=== PATIENT | male | born 1965 | race Caucasian/White ===

== ENCOUNTER → 2020-04-20 | Day surgery (SDC) | payer BC ==
[~2020-04-20] VITALS: Ht 188 cm; Wt 98.0 kg
[~2020-04-20] MED LIST: ADACEL VIAL IM ONE; ANCEF IM STA; ANCEF ONE; CARDENE IV ONE; LACTATED RINGERS 1,000 ML ONE; VERSED IV STA; VERSED ONE; WATER 20 ML ONE
[2020-04-20 19:08] VITALS: BP 157/98
[2020-04-20 19:18] VITALS: BP 157/98
--- NOTE | 2020-04-20 19:42 | ER.PDOC ---
General Chief Complaint: Extremities Stated Complaint: FINGER LAC Time seen by MD: 19:40 Source: patient Exam Limitations: no limitations History of Present Illness Initial Comments Injury of left middle finger after wood fell on it. Occurred: just prior to arrival Where: home Severity: severe Context: crush Location of Injury: (L) hand Modifying Factors: pain on movement Allergies: Coded Allergies: peanut (Unverified Adverse Reaction, Unknown, DOES NOT KNOW REACTION, 05/20/17) PT STD THAT HE HAD A BLOOD TEST DONE IN [place] AND WAS TOLD HE IS "BARELY ALLERGIC TO PEANUTS" AND THAT HE DOESNT KNOW HIS REACTION TO PEANUTS. Past Medical History Medical History: hypertension Surgical History: other Social History Alcohol Use: occassionally Drug Use: none Review of Systems Constitutional: no symptoms reported EENTM: no symptoms reported Respiratory: no symptoms reported Cardiovascular: no symptoms reported Gastrointestinal: no symptoms reported Genitourinary: no symptoms reported Musculoskeletal: see HPI All Other Systems: Reviewed and Negative Physical Exam General Appearance: Alert, No Apparent Distress Hand: see diagram, tenderness, nail injury complete Wrist: nml inspection, non-tender, nml ROM 1 - Partial amputation distal left middle finger. Vascular: no vascular compromise Tendons: tendon function nml Forearm/Elbow/Arm: uninjured above wrist Head/ENT: nml inspection, pharynx nml Neck/Back: nml inspection, non-tender Resp/CVS: no resp distress, lungs clear, heart sounds nml, reg. rate & rhythm Abdomen: non-tender, no organomegaly Results/Orders Results/Orders Orders - LALY SALAS MD Xr Finger Lt (04/20/20 19:20) Cefazolin Sodium (Ancef) (04/20/20 19:20) Diph,Pertuss(Acell),Tet Vac/Pf (Adacel V (04/20/20 19:30) Nicardipine Hcl (Cardene) (04/20/20 19:19) Cefazolin Sodium (Ancef) (04/20/20 19:20) Water For Injection,Sterile (Water) (04/20/20 19:22) Vital Signs Date Time Temp Pulse Resp B/P (MAP) Pulse Ox O2 Delivery O2 Flow Rate FiO2 04/20/20 19:18 98.2 91 16 157/98 (117) 98 04/20/20 19:08 98.2 91 16 98 04/20/20 19:08 98.2 91 16 04/20/20 19:08 98.2 91 16 157/98 (117) 98 Administered Medications Medications (Trade) Dose Ordered Sig/Sheba Route PRN Reason Start Time Stop Time Status Last Admin Dose Admin Cefazolin Sodium (Ancef) 1 gm STAT STAT IM 04/20/20 19:20 04/20/20 19:22 DC 04/20/20 19:29 1 GM Diphtheria/ Tetanus/Acell Pertussis (Adacel Vial) 0.5 ml ONCE ONCE IM 04/20/20 19:30 04/20/20 19:31 DC 04/20/20 19:29 0.5 ML Progress Progress X rays left middle finger:Amputation through the distal phalanx of the left 3rd finger with at least 3 osseous fragments within the remaining soft tissues. ER DEPART Departure Time of Disposition: 20:07 Disposition: 30 STILL A PATIENT Impression: Primary Impression: Injury, finger Additional Impression: Amputation finger Condition: Stable Referrals: [facility] (PCP) PRIMARY CARE PROVIDER Comments Patient taken to the OR for revision of partial amputation by Dr. Colon. Duration or Time Spent with Pa: 20 min Problem Qualifiers Primary Impression: Injury, finger Encounter type: initial encounter Laterality: left Qualified Codes: S69.92XA - Unspecified injury of left wrist, hand and finger(s), initial encounter Additional Impression: Amputation finger Encounter type: initial encounter Qualified Codes: S68.119A - Complete traumatic metacarpophalangeal amputation of unspecified finger, initial encounter LALY SALAS MD Apr 20, 2020 19:42
--- NOTE | 2020-04-20 19:46 | DIREP ---
PROCEDURE:XRAY FINGER-LT COMPARISON:None. INDICATIONS:Pain/injury FINDINGS: Three views of the left 3rd digit, middle finger. There is been amputation through the distal phalanx of the left 3rd finger. The distal tuft is absent. There are at least 3 osseous fragments within the remaining soft tissues measuring up to 4 mm. No additional fracture or dislocation identified. There is a punctate radiopaque foreign body in the lateral soft tissues of the more proximal left finger at the level of the mid shaft of the proximal phalanx. Degenerative changes involving the metacarpophalangeal joints. CONCLUSION: 1. Amputation through the distal phalanx of the left 3rd finger with at least 3 osseous fragments within the remaining soft tissues. Dictated by: Norma Lees MD on 04/20/2020 at 07:43 PM
--- NOTE | 2020-04-20 20:18 | NUR ---
DR. CARTER IN ROOM WITH PATIENT TO EXAMINE FINGER TIP. DISCUSSED SURGICAL PROCEDURE WITH PATIENT, PATIENT AGREEABLE TO PROCEDURE. EXPECTATION IS TO BE DISCHARGED SHORTLY AFTER PROCEDURE. CONSENTS DISCUSSED AND SIGNED BY PATIENT, PHYSICIAN AND WITNESS. PATIENT DENIES ANY QUESTIONS OR CONCERNS AT THIS TIME.
--- NOTE | 2020-04-20 20:37 | NUR ---
OR OR, RN AT BEDSIDE TO TAKE PATIENT TO SURGERY. REPORT GIVEN TO DANIKA, RN
[2020-04-20 20:38] VITALS: BP 163/82
--- NOTE | 2020-04-20 21:02 | CNH ---
DATE OF CONSULTATION: 04/20/2020 CHIEF COMPLAINT: Painful left long finger. HISTORY OF PRESENT ILLNESS: The patient is a 55-year-old male who was at work this evening and got his tip of his left long finger amputated in a traumatic fashion when he got caught in a tailgate of a pickup is my understanding. The patient presented to the Emergency Room where the patient was evaluated by Dr. Pickard and I was consulted for further evaluation and treatment. PHYSICAL EXAMINATION: Shows that he has a traumatic amputation of the distal end of his left long finger. His nail was completely avulsed. He has about 30% of the nail bed remaining. There is volar soft tissue loss, but still a fair amount of soft tissue on the volar aspect of his finger. The tip of the distal phalanx is protruding through the end of the wound about 2 mm. IMAGING STUDIES: The patient's x-rays show that he has a fracture of the distal phalanx. ASSESSMENT: Traumatic amputation of the distal end of the left long finger. PLAN: The patient will be taken to the operating room for revision of amputation. The risks and hazards have been discussed with the patient. He understands the risk involved and wants to proceed as planned. Fernando Colon MD DR: JOSE/kiersten JOB# [id number]
[2020-04-20 21:15] VITALS: BP 150/97
--- NOTE | 2020-04-20 21:37 | OPH ---
DATE OF SURGERY: 04/20/2020 PREOPERATIVE DIAGNOSIS: Amputation of the distal aspect of the left long finger. POSTOPERATIVE DIAGNOSIS: Amputation of the distal aspect of the left long finger. OPERATIVE PROCEDURE: Revision of amputation, left long finger. SURGEON: Fernando Colon MD ANESTHESIA: Local. BLOOD LOSS: 5 mL. 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 He was seen in the Emergency Room and found to have an amputation through the distal phalanx. His nail had been avulsed, he had some volar soft tissue loss in palm and the tip of the distal phalanx was comminuted and extending at the end of the wound about 2 mm. The patient was taken to the operating room for revision of amputation. DESCRIPTION OF PROCEDURE: The patient was placed on the operating table in the supine position. A digital block was given about the metacarpal head with 1% lidocaine plain. The patient had the wounds sterilely prepped and draped. A quarter inch [place] drain was placed about the base of the finger to act as a tourniquet. The patient had skin and subcutaneous tissue as well as bone debrided from the wound. We were able to repair the proximal third of his nail bed to the surrounding soft tissue. We were able to pull some of the volar soft tissue over the tip of the distal phalanx after about 2-3 mm was rongeured off. The patient then had the wound irrigated and dressed with Adaptic, 4 x 4s, and Sajan wrap. The patient had the tourniquet released. He was sent to recovery in stable condition. Fernando Colon MD DR: JOSE/kiersten JOB# [id number]
[2020-04-20 21:40] VITALS: BP 149/98
== END | disposition home or self-care (01) ==
LOC: ER 18:55 → SDC 20:12
PROVIDERS: ATTEND Orthopaedic Surgery
DX: S68.113A Complete traumatic metacarpophalangeal amputation of left middle finger, initial encounter (principal); S69.92XA Unspecified injury of left wrist, hand and finger(s), initial encounter; I10 Essential (primary) hypertension; Z72.89 Other problems related to lifestyle; W19.XXXA Unspecified fall, initial encounter
CPT/HCPCS: 26951; 73140; 99285; A4649; J0690; J2250; J7120; A4216

== ENCOUNTER → 2020-09-11 | Outpatient (CLI) | payer BC, OTHER ==
--- NOTE | 2020-09-11 11:17 | DIREP ---
PROCEDURE:CTA ABDOMEN WITH CONTRAST COMPARISON:CT, CT ABD/PELVIS W/ CONTRAST, 03/15/2019, 04:56 PM. INDICATIONS:PERSISTANT HTN, R/O RENAL ARTERY STENOSIS TECHNIQUE:After obtaining the patient's consent, CTA images of the abdomen and pelvis were created with non-ionic intravenous contrast, and with multi-planar/3-D imaging to optimize visualization of vascular anatomy. FINDINGS: AORTA/VASCULAR:No significant atherosclerotic changes. No stenosis, aneurysm or dissection. LOWER CHEST:No infiltrate or pleural effusion. LIVER:Normal. BILIARY:No gallstones or biliary duct dilatation. PANCREAS:Normal. SPLEEN:Normal. URINARY TRACT:Normal nephrograms without obstruction or perinephric inflammation. ADRENALS:Normal. RETROPERITONEUM:Normal. BOWEL/MESENTERY:No bowel obstruction, inflammatory stranding, free fluid or air. Normal visualized appendix. ABDOMINAL WALL:Normal. BONES:Advanced L4/5 disc degenerative changes. OTHER:Normal. CONCLUSION:Negative CT abdomen. No acute process or evidence of renal artery stenosis. Dictated by: Noemy King MD on 09/11/2020 at 11:08 AM
--- NOTE | 2020-09-11 12:59 | DIREP ---
PROCEDURE:MR KNEE WITHOUT CONTRAST [Left] TECHNIQUE:Multi-planar MR images of the left knee were obtained without contrast. COMPARISON:None. INDICATIONS:M25.562 PAIN IN LEFT KNEE FINDINGS: MENISCI:Posterior horn and body undersurface/tibial surface meniscal tear and fraying. Lateral meniscus demonstrates normal signal and morphology. CRUCIATE LIGAMENTS:Anterior and posterior cruciate ligaments demonstrate normal signal and morphology. COLLATERAL LIGAMENTS:Edema overlies the superficial fibers of the MCL may reflect mild sprain versus reactive changes. Lateral collateral ligamentous complex demonstrates normal signal and morphology. HYALINE CARTILAGE:Scattered full-thickness chondral fissuring seen throughout the medial joint compartment. Lateral joint compartment articular cartilage maintained. PATELLOFEMORAL:Full-thickness chondral fissuring noted throughout the medial patellar facet and median ridge. BONES:Minimal foci of subchondral edema in the medial femoral condyle. Marrow signal is age appropriate. No fracture or suspicious lesion. OTHER:Small joint effusion. Synovitis. Prepatellar edema. Small Rodriguez's cyst. CONCLUSION: 1. Posterior horn and medial meniscal body tear with degenerative fraying. 2. Reactive edema versus grade 1 MCL sprain. 3. Medial compartment chondral loss and degenerative changes. 4. Patellar chondral loss. 5. Small joint effusion. Synovitis. Small Rodriguez's cyst. Dictated by: Chicho Jordan M.D. on 09/11/2020 at 12:51 PM
== END | disposition home or self-care (01) ==
LOC: RAD 09:40
PROVIDERS: ATTEND Nurse Practitioner Family
DX: S83.242A Other tear of medial meniscus, current injury, left knee, initial encounter (principal); M17.12 Unilateral primary osteoarthritis, left knee; M25.562 Pain in left knee; M25.462 Effusion, left knee; M71.22 Synovial cyst of popliteal space [Baker], left knee; M65.9 Synovitis and tenosynovitis, unspecified; X58.XXXA Exposure to other specified factors, initial encounter; Y93.89 Activity, other specified; Y92.89 Other specified places as the place of occurrence of the external cause; Y99.8 Other external cause status
CPT/HCPCS: 73721; 74175; Q9965

== ENCOUNTER → 2020-09-13 | Outpatient (CLI) | payer BC | END | disposition home or self-care (01) | LOC: NPLAB 09:49 | PROVIDERS: ATTEND Nurse Practitioner Family | DX: R19.7 Diarrhea, unspecified (principal); Z20.822 Contact with and (suspected) exposure to COVID-19 | CPT/HCPCS: 87426; 87635 ==

== ENCOUNTER 2020-10-13 06:00 | Day surgery (SDC) | payer BC ==
[2020-10-09 15:40] VITALS: BP 139/96
--- NOTE | 2020-10-09 15:58 | PCM.EKG ---
[facility] Test Date: 2020-10-09 Test Time: 16:50:31 Pat Name: NABIL GRAJEDA Department: Patient ID: [facility]-[id number] Room: Gender: M Stable Helper: ROMA : 1965 Requested By: ARABELLA ANTHONY Order Number: [id number] Reading MD: Arabella Anthony Measurements Intervals [place] Rate: 92 P: 63 RI: 172 QRS: 32 QRSD: 82 T: 21 QT: 362 QTc: 447 Interpretive Statements Normal sinus rhythm No previous ECG available for comparison Electronically Signed On 10-12-2020 11:09:43 G[employer] LINE REPAIRER by Arabella Anthony Please click the below link to view image of tracing.
--- NOTE | 2020-10-09 17:01 | DIREP ---
PROCEDURE:CHEST 2 VIEWS COMPARISON:None. INDICATIONS:PRE-OP HEART CATH, ABNORMAL STRESS TEST FINDINGS: LUNGS/PLEURA:No significant pulmonary parenchymal abnormalities. No effusions. VASCULATURE:Normal. Unremarkable pulmonary vasculature. CARDIAC:Normal. No cardiac silhouette abnormality or cardiomegaly. MEDIASTINUM:Normal. No visible mass or adenopathy. BONES:Normal. No fracture or visible bony lesion. OTHER:Negative. CONCLUSION: 1. No acute cardiopulmonary abnormality. Dictated by: Rios Neri Jr. on 10/09/2020 at 04:59 PM
[2020-10-13] VITALS (9 sets, daily range): BP systolic 130–150; BP diastolic 88–100
[~2020-10-13] VITALS: Ht 188 cm; Wt 98.0 kg
[~2020-10-13 06:00] MED LIST changes: -ADACEL VIAL IM ONE; -ANCEF IM STA; -ANCEF ONE; -CARDENE IV ONE; +CARV25TA PO; +CLON1TAB11 PO; +HEPARIN ONE; +HYDR-3194 PO; -LACTATED RINGERS 1,000 ML ONE; +NS 1000ML 1,000 ML IV SCH; +NS 1000ML 1,000 ML ONE; +OLME1TAB23 PO; +OMEP20TA9 PO; +PHENERGAN PO ONE; +POTA10CA PO; +ROSU20TA2 PO; +SUBLIMAZE ONE; +VALIUM PO ONE; -VERSED IV STA; -WATER 20 ML ONE; +XYLOCAINE ONE
[2020-10-13] MEDS ORDERED: PHENERGAN ONE (06:20)
[2020-10-13] MEDS ORDERED: VALIUM ONE (06:21)
[2020-10-13] MEDS ORDERED: NS 1000ML 1,000 ML ONE (06:38)
[2020-10-13] MEDS ORDERED: SUBLIMAZE ONE (06:38)
[2020-10-13] MEDS ORDERED: XYLOCAINE ONE (06:38)
[2020-10-13] MEDS ORDERED: HEPARIN ONE (06:38)
[2020-10-13] MEDS ORDERED: VERSED ONE (06:38)
[2020-10-13] MEDS ORDERED: TYLENOL PO ONE ×2 (08:55→09:00)
--- NOTE | 2020-10-13 08:55 | OPH ---
DATE OF SURGERY: 10/13/2020 HEART CATH REPORT PRECARE DIAGNOSES: Hypertension, hypertensive heart disease, LV systolic dysfunction, 40% ejection fraction, uncontrolled hypertension, dyslipidemia, history of dyspnea, abnormal myocardial perfusion scan, inferoposterior hypoperfusion abnormality with ejection fraction of 40-42%, assess for significant coronary artery disease, multiple risk factors for CAD. POSTCARE DIAGNOSES: Fair sized left main, fully patent. Left anterior descending artery is a type 3 vessel with slow flow of dye, no flow obstruction is documented. It is a fairly large vessel. Circumflex is a good size vessel with proximal mild luminal irregularity with the first obtuse marginal branch showing mild luminal irregularity at the point of origin. No flow obstruction is documented. Right coronary artery is a good size vessel, appears to be fully patent. Left ventricle mildly dilated with mild global hypokinesis and 45% ejection fraction, LVEDP of 15 mm. ANESTHESIA: 2% lidocaine. PREOPERATIVE MEDICATIONS: Phenergan 50 mg p.o., Valium 2.5 mg p.o., Versed 2 mg IV, fentanyl 25 mcg IV. ANTICOAGULATION: Heparin 2000 units intra-arterially, 2000 units in the flush solution, 1000 units in the dye solution. Dye use is Omnipaque. Total amount is 80 mL. CATHETERS: JL4 6-Serbian, JR4 6-Serbian, 6-Serbian angled pigtail catheter. ARTERIAL TIME: 8 minutes. FLUOROSCOPIC TIME: 2.3 minutes. PROCEDURES: Left heart catheterization, bilateral selective coronary arteriography, left ventriculography via right femoral Lorraine approach. PROCEDURE IN DETAIL: Under local anesthesia, right femoral artery was punctured percutaneously by arterial needle, guide wire passed in right femoral artery, 6-Serbian Cordis sheath introduced, side port of the sheath used for femoral arterial pressure monitoring. Sheath anchored with suture. Left Lorraine catheter introduced over guide wire into ascending aorta left coronary artery cannulated and left coronary angiography performed in [place] and [place]ERA projections with craniocaudal applications to visualize all branches. Left catheter exchanged for right coronary catheter and right coronary angiography performed in [place] and OSEGUERA. This catheter exchanged for 6-Serbian pigtail catheter and catheter crossed the aortic valve and left ventricular LVEDP measured and LV gram performed in 30 degrees OSEGUERA view with 30 mL Omnipaque dye and panning of descending aorta attempted. Patient tolerated procedure well. No complications of procedure. Angio-Seal deployed for hemostasis. LVEDP is 15 mm, LV pressure 140/15, femoral artery pressure 120/90, probably damped pressure. Mean pressure is about 95. No gradient across the aorta on pullback of the central catheter. FINAL CONCLUSION: No flow obstructive coronary artery disease, type 3 LAD slow flow of dye in the LAD, mild luminal irregularity proximal circumflex, good size circumflex, normal right coronary artery, mild LV systolic dysfunction, hypertension, hypertensive heart disease and dyslipidemia. PLAN: At this time, risk factor modification, daily exercise. Hemoglobin is over 17, cut down red meat. Aspirin 81 mg once a day. Followup with Beth Burris. Laxmichand MD Gabrielle DR: ASMITA/kiersten JOB# [id number]
[2020-10-13] MEDS ORDERED: ASPI-667 PO (09:00)
[2020-10-13] MEDS ORDERED: COREG PO ONE (11:00)
== END 2020-10-13 11:23 | disposition home or self-care (01) ==
LOC: SDC 06:00
PROVIDERS: ATTEND Specialist
DX: I25.10 Atherosclerotic heart disease of native coronary artery without angina pectoris (principal); I11.0 Hypertensive heart disease with heart failure; I50.32 Chronic diastolic (congestive) heart failure; F17.200 Nicotine dependence, unspecified, uncomplicated; E78.5 Hyperlipidemia, unspecified; Z90.79 Acquired absence of other genital organ(s); Z82.49 Family history of ischemic heart disease and other diseases of the circulatory system; Z72.89 Other problems related to lifestyle; Z91.010 Allergy to peanuts; Z85.46 Personal history of malignant neoplasm of prostate; Z79.82 Long term (current) use of aspirin
CPT/HCPCS: 36415; 71046; 85610; 85730; 93005; 93458; 99152; 99153; A9150; C1760; C1894 ×3; J1644 ×4; J2250 ×2; J3010 ×2; J7030 ×4; Q9967

== ENCOUNTER → 2020-12-20 | Outpatient (CLI) | payer BC ==
[~2020-12-20] MED LIST changes: +ASPI-667 PO; -HEPARIN ONE; -NS 1000ML 1,000 ML IV SCH; -NS 1000ML 1,000 ML ONE; -PHENERGAN PO ONE; -SUBLIMAZE ONE; -VALIUM PO ONE; -VERSED ONE; -XYLOCAINE ONE
== END | disposition home or self-care (01) ==
LOC: LAB 10:56
PROVIDERS: ATTEND Nurse Practitioner Family
DX: R50.9 Fever, unspecified (principal)
CPT/HCPCS: 87633

== ENCOUNTER → 2021-08-02 | Outpatient (CLI) | payer OTHER | END | disposition home or self-care (01) | LOC: LAB 14:37 | PROVIDERS: ATTEND Nurse Practitioner Family | DX: R21 Rash and other nonspecific skin eruption (principal) | CPT/HCPCS: 36415; 86780 ==

== ENCOUNTER → 2021-09-20 | Outpatient (CLI) | payer OTHER ==
[2021-09-20 16:52] LABS: CARBON DIOXIDE 29.9 mmol/L (20.0-32)
== END | disposition home or self-care (01) ==
LOC: NPLAB 16:04
PROVIDERS: ATTEND Internal Medicine Cardiovascular Disease
DX: I10 Essential (primary) hypertension (principal)
CPT/HCPCS: 36415; 80048